=== PATIENT | male | born 1975 | race Caucasian/White ===

== ENCOUNTER 2019-03-24 18:38 | Emergency (ER) | payer OTHER, MEDICAID ==
[~2019-03-24] VITALS: Ht 185.4 cm; Wt 80.0 kg
[2019-03-24 18:43] VITALS: BP 128/73
--- NOTE | 2019-03-24 18:53 | NUR ---
REPORT FROM KENDY CARRILLO
[2019-03-24] MEDS ORDERED: LORazepam 2 MG/ML, 1ML ONE (18:55)
[2019-03-24] MEDS ORDERED: LORazepam 2 MG/ML, 1ML IM ONE (19:00)
[2019-03-24] MEDS ORDERED: PLEASE ENTER ALLERGIES MC SCH (19:00)
[2019-03-24 19:01] LABS: MICROSCOPIC NOT IND
[2019-03-24 19:02] LABS: CULTURE INDICATED? NO
[2019-03-24 19:45] LABS: BASOPHILS % (AUTO) 2 % (0-1); EOSINOPHILS # (AUTO) 0.38 x10^3/uL (0-0.4); EOSINOPHILS % (AUTO) 5 % (1-7); LYMPHOCYTES # (AUTO) 2.48 x10^3/uL (1-3.4); LYMPHOCYTES % (AUTO) 36 % (22-44); MD NO; MEAN CORPUSCULAR HEMOGLOBIN 31.6 pg (27.5-34.5); MEAN CORPUSCULAR HGB CONC 31.5 g/dL (33.2-36.2); MEAN CORPUSCULAR VOLUME 100.3 fL (81-97); MEAN PLATELET VOLUME 9.7 fL (7.4-10.4); MONOCYTES # (AUTO) 0.47 x10^3/uL (0.2-0.8); MONOCYTES % (AUTO) 7 % (2-9); NEUTROPHILS # (AUTO) 3.52 x10^3/uL (1.8-6.8); NEUTROPHILS % (AUTO) 51 % (42-75); PLATELET COUNT 226 x10^3/uL (130-400); RED BLOOD COUNT 3.55 x10^6/uL (4.38-5.82); RED CELL DISTRIBUTION WIDTH 14.2 % (9.4-14.8)
[2019-03-24 19:57] LABS: ALANINE AMINOTRANSFERASE 19 U/L (12-78); ALBUMIN 3.2 g/dL (3.4-5.0); ANION GAP 5 mmol/L (5-15); CALCIUM 8.6 mg/dL (8.5-10.1); CHLORIDE 106 mmol/L (98-107); CREATININE 0.86 mg/dL (0.7-1.3); SALICYLATE LEVEL < 1.7 mg/dL (2.8-20.0)
[2019-03-24 20:02] LABS: ALKALINE PHOSPHATASE 57 U/L (45-117); BILIRUBIN,TOTAL 0.3 mg/dL (0.2-1.0); TOTAL PROTEIN 6.7 g/dL (6.4-8.2)
--- NOTE | 2019-03-24 20:32 | NUR ---
REPORT TO KENDY VALERIO AT [facility]
== END 2019-03-24 20:51 ==
LOC: ED 20:41
DX: F31.9 Bipolar disorder, unspecified (principal); F41.1 Generalized anxiety disorder; I50.9 Heart failure, unspecified
CPT/HCPCS: 36415; 71045; 80053; 80307; 81003; 83880; 85025; 93005; 96372; 99285; J2060

== ENCOUNTER 2019-03-24 21:45 | Emergency (ER) | payer OTHER, MEDICAID ==
--- NOTE | 2019-03-24 21:52 | NUR ---
RICH CROWLEY. PT BROUGHT BACK FROM [facility], D/T THE PT COULD NOT WALK BACK TO HIS ROOM ON HIS OWN. FROY RN HAS BEEN WITH THE PT THE ENTIRE TIME. PT DID NOT ANSWER ANY OF THE SUICIDE QUESTIONS. FROY RN IS AT BEDSIDE. CONNECTED TO MONITORING.
--- NOTE | 2019-03-24 22:57 | NUR ---
PT SLEEPING ON GURNEY. KAILEY. FROY RN AT BEDSIDE.
[2019-03-25 00:05] VITALS: BP 118/81
--- NOTE | 2019-03-25 00:24 | NUR ---
attempted to call report to amber gleason. 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 message left requesting call back
--- NOTE | 2019-03-25 00:33 | NUR ---
INTO ROOM TO DISCUSS POC. STAFF MEMBER AT BEDSIDE WILL CALL [facility] AND ATTEMPT TO HAVE A NURSE CALL FOR REPORT.
--- NOTE | 2019-03-25 00:41 | NUR ---
TRANSFER REQ FAXED TO [facility]
--- NOTE | 2019-03-25 00:51 | NUR ---
REPORT CALLED TO THERESA LARRY. DR BELTRAN ACCEPTING. [facility] CALLED ETA [phone]
--- NOTE | 2019-03-25 01:55 | NUR ---
PT STILL HERE
== END 2019-03-25 02:51 ==
LOC: ED 03-25 00:31
DX: F31.9 Bipolar disorder, unspecified (principal); R60.9 Edema, unspecified; I50.9 Heart failure, unspecified; F17.200 Nicotine dependence, unspecified, uncomplicated
CPT/HCPCS: 99285

== ENCOUNTER 2019-03-25 23:31 | Emergency (ER) | payer OTHER ==
[~2019-03-25] VITALS: Ht 182.9 cm; Wt 79.0 kg
[2019-03-25 23:33] VITALS: BP 103/55
--- NOTE | 2019-03-26 00:26 | NUR ---
LUNCH RN: PT REFUSED VITAL SIGNS.
--- NOTE | 2019-03-26 00:56 | NUR ---
REPORT GIVEN TO KENDY CARRINGTON
== END 2019-03-26 02:13 ==
LOC: ED 23:42
DX: M25.511 Pain in right shoulder (principal); I50.9 Heart failure, unspecified; Z72.9 Problem related to lifestyle, unspecified
CPT/HCPCS: 99285